=== PATIENT | female | born 1990 | race Caucasian/White ===

== ENCOUNTER 2019-10-23 00:58 | Emergency (ER) | payer MEDICAID ==
[~2019-10-23] VITALS: Ht 180.3 cm; Wt 131.8 kg
[2019-10-23 01:03] VITALS: Ht 180.3 cm; Wt 131.8 kg
[2019-10-23] MEDS ORDERED: PRENAVITE1 TAB (01:04)
[2019-10-23] MEDS ORDERED: ATARAX 25 MG TA25 MG PO (01:33)
[2019-10-23] MEDS ORDERED: CLOTRIM ANTIFUN15 GM TOPICAL (01:33)
[2019-10-23 02:43] VITALS: BP 132/85
== END 2019-10-23 03:00 | disposition home or self-care (01) ==
LOC: D.ER 00:58
DX: B37.2 Candidiasis of skin and nail (principal); B37.89 Other sites of candidiasis

== ENCOUNTER 2019-10-31 00:11 | Emergency (ER) | payer MEDICAID ==
[~2019-10-31] VITALS: Ht 180.3 cm; Wt 131.8 kg
[~2019-10-31 00:11] MED LIST: ATARAX 25 MG TA25 MG PO; CLOTRIM ANTIFUN15 GM TOPICAL; PRENAVITE1 TAB
[2019-10-31 00:16] VITALS: Ht 180.3 cm; Wt 131.8 kg
[2019-10-31] MEDS ORDERED: CICLOPIROX CREA15 GM TOPICAL (00:33)
[2019-10-31] MEDS ORDERED: VISTARIL25 MG PO (00:33)
[2019-10-31 00:44] VITALS: BP 140/70
== END 2019-10-31 00:44 | disposition home or self-care (01) ==
LOC: D.ER 00:11
DX: B35.9 Dermatophytosis, unspecified (principal)

== ENCOUNTER 2020-05-15 07:05 | Day surgery (SDC) | payer MEDICAID ==
[2020-05-11 13:21] LABS: BASOPHILS 0.1 % (0-2); EOSINOPHILS 2.2 % (0-7); HEMATOCRIT 39.3 % (36.0-48.0); HEMOGLOBIN 12.8 g/dL (12-16); IMMATURE GRANULOCYTES 0.1 % (0-5); LYMPHOCYTE ABS# 2.68 10x3/uL (1.18-3.74); LYMPHOCYTES 34.6 % (15-50); MCH 26.1 pg (26.0-34.0); MCHC 32.6 g/dL (31.0-37.0); MEAN PLATELET VOLUME 9.9 fL (7.4-10.4); MONOCYTES 5.9 % (2-11); NEUTROPHIL ABS# 4.41 10x3/uL (1.56-6.13); NEUTROPHILS 57.1 % (40-80); RBC 4.91 10x6/uL (4.00-5.40); RDW 14.8 % (11.5-14.5); WBC 7.7 10x3/uL (4.8-10.8)
[2020-05-11 13:23] LABS: PLATELET COUNT 288 10x3/uL (130-400)
[~2020-05-15] VITALS: Ht 180.3 cm; Wt 139.5 kg
[~2020-05-15 07:05] MED LIST changes: +CICLOPIROX CREA15 GM TOPICAL; +PROTONIX20 MG PO; +VISTARIL25 MG PO
[2020-05-15 07:48] VITALS: BP 116/66; Ht 180.3 cm; Wt 139.5 kg
[2020-05-15 08:20] LABS: HCG URINE NEGATIVE (NEGATIVE)
--- NOTE | 2020-05-15 11:29 | NUR ---
1108 - PT REQUESTS BEDPAN, STATES SHE IS NAUSEATED. BEDPAN PLACED, MEDS GIVEN PER ORDERS
--- NOTE | 2020-05-15 13:11 | NUR ---
1255 PT. DRESSED. STATES READY FOR DISCHARGE. DC INSTS. GIVEN, VOICED UNDERSTANDING, RX GIVEN, RELEASED IN WC, SPOUSE GUIDE DOMESTIC TOUR HOME.
--- NOTE | 2020-05-16 13:32 | OP ---
PATIENT NAME: VICKI SU MEDICAL RECORD: [id number] :90 LOCATION:D.OPS ADMISSION DATE: SURGEON: KENDRA RUBIO DO DATE OF OPERATION: 05/15/2020 PREOPERATIVE DIAGNOSES: Multiparity, desire for permanent sterilization. POSTOPERATIVE DIAGNOSES: Multiparity, desire for permanent sterilization. PRIMARY SURGEON: Kendra Rubio DO ANESTHESIA: General ET tube. PROCEDURE: Laparoscopic bilateral tubal ligation. FINDINGS: Normal-appearing external genitalia, normal appearing vaginal vault. Normal appearing cervix. Uterus sounded to 8 cm. Normal appearing uterus, bilateral fallopian tubes, and bilateral ovaries. SPECIMENS: Not applicable. ESTIMATED BLOOD LOSS: 20 cc. INTRAVENOUS FLUIDS: 800 cc. URINE OUTPUT: 25 cc cloudy urine sent for culture. COMPLICATIONS: None. CONDITION: Stable. DESCRIPTION OF PROCEDURE: The risks, benefits, alternatives and indications of the procedure were discussed with the patient. She voiced understanding of the procedure and wished to proceed. She expressed desire for permanent sterility and understood that this is a permanent procedure. She was taken to the OR where general anesthesia was administered and found to be adequate. She was placed in the dorsal lithotomy position. She was prepped and draped in the normal sterile fashion. A red rubber catheter was used to drain the bladder. 25 cc of cloudy urine was removed and due to the appearance of a possible UTI, the urine was sent for culture. A speculum was placed in the posterior aspect of the vagina. Single tooth tenaculum was used to grasp the anterior lip of the cervix. The uterus was sounded to 8 cm. The HUMI manipulator was placed without incident and all other instruments were removed from the vagina. Gloves were changed and attention was then turned to the abdomen. Marcaine was placed in the umbilical fold and a 5 mm port was placed under direct laparoscopic visualization. Pneumoperitoneum was achieved to 15 mmHg. The patient was placed in Trendelenburg position and the bowel was displaced out of the pelvis. A 5 mm port was placed 2 cm superior and 2 cm medial to the left ASIS under direct laparoscopic visualization. The uterus was elevated out of the pelvis and a normal appearing uterus, bilateral fallopian tubes and bilateral ovaries were noted. The left fallopian tube was grasped with the Kleppinger device and a 3-cm portion of the fallopian tube was fulgurated and then cut with good hemostasis. The right fallopian tube was then grasped with a Kleppinger device and again a 3 cm portion of the tube was fulgurated and then cut with good hemostasis. The uterus was placed back into the pelvis and the patient was OPERATIVE REPORT [id number] SHARLENEVICKI taken out of Trendelenburg position. All pneumoperitoneum was released and the ports were removed from the abdomen. port sites were closed with 3-0 Monocryl and Dermabond covering with good hemostasis noted. The tenaculum site was then reinspected after placing the speculum back into the vagina, which was noted to have some bleeding, which was hemostatic after Monsel's application. All instruments were then removed from the vagina. The patient was awakened and taken to the recovery room in stable condition. TRANSINT:[id number] Voice Confirmation ID: [id number] DOCUMENT ID: [id number] KENDRA RUBIO DO at 1332 CC: [id number] DICTATION DATE: 05/15/20 1107 [facility]: 05/15/20 1608 [facility] 05/15/20 [address] [place] [address]
== END 2020-05-15 12:55 | disposition home or self-care (01) ==
LOC: D.OPS 07:05
PROVIDERS: ATTEND Student in an Organized Health Care Education/Training Program
DX: Z30.2 Encounter for sterilization (principal); Z39.2 Encounter for routine postpartum follow-up; Z64.1 Problems related to multiparity

== ENCOUNTER 2020-07-15 20:49 | Emergency (ER) | payer MEDICAID ==
[~2020-07-15] VITALS: Ht 180.3 cm; Wt 136.1 kg
[2020-07-15 20:52] VITALS: Ht 180.3 cm; Wt 136.1 kg
[2020-07-15 21:16] LABS: BILIRUBIN NEGATIVE (NEGATIVE); HCG URINE NEGATIVE (NEGATIVE); KETONE NEGATIVE (NEGATIVE); NITRITE NEGATIVE (NEGATIVE); UROBILINOGEN NORMAL mg/dL (< 2)
[2020-07-15 21:19] LABS: BASOPHILS 0.9 % (0-2); EOSINOPHILS 3.1 % (0-7); HEMATOCRIT 37.4 % (36.0-48.0); HEMOGLOBIN 12.4 g/dL (12-16); LYMPHOCYTES 36.4 % (15-50); MCH 25.7 pg (26.0-34.0); MCHC 33.2 g/dL (31.0-37.0); MCV 77.5 fL (80.0-100.0); MEAN PLATELET VOLUME 8.2 fL (7.4-10.4); MONOCYTES 5.9 % (2-11); NEUTROPHILS 53.7 % (40-80); PLATELET COUNT 328 10x3/uL (130-400); RBC 4.82 10x6/uL (4.00-5.40); RDW 15.9 % (11.5-14.5); WBC 9.6 10x3/uL (4.8-10.8)
[2020-07-15 21:27] LABS: CALC OSMOLALITY 284 mosm/kg (275-300); CALCIUM 8.8 mg/dL (8.5-10.1); CARBON DIOXIDE 28.5 mmol/L (21.0-32.0); CHLORIDE - SERUM 106 mmol/L (98-107); CREATININE - SERUM 0.8 mg/dL (0.6-1.3); GLUCOSE 94 mg/dL (74-106); POTASSIUM - SERUM 3.8 mmol/L (3.5-5.1); SODIUM 142 mmol/L (136-145); UREA NITROGEN 19 mg/dL (7-18); eGFR NON AFRICAN AMERICAN 89 mL/min (90-120)
[2020-07-15 21:36] LABS: ALBUMIN 3.7 g/dL (3.4-5.0); ALKALINE PHOSPHATASE 64 U/L (30-120); ALT (SGPT) 23 U/L (10-68); AMYLASE - SERUM 40 U/L (25-115); BILIRUBIN - TOTAL 0.29 mg/dL (0.2-1.3); LIPASE 107 U/L (73-393); PROTEIN - SERUM 7.2 g/dL (6.4-8.2)
[2020-07-15 21:37] LABS: TROPONIN-I < 0.017 ng/mL (0.000-0.060)
[2020-07-15 23:30] VITALS: BP 118/73
== END 2020-07-15 23:30 | disposition home or self-care (01) ==
LOC: D.ER 20:49
PROVIDERS: Family Medicine
DX: K42.9 Umbilical hernia without obstruction or gangrene (principal); K21.9 Gastro-esophageal reflux disease without esophagitis